=== PATIENT | male | born 1995 | race Caucasian/White ===

== ENCOUNTER 2017-05-08 22:23 | Inpatient (IN) | payer MEDICAID, OTHER ==
[~2017-05-08] VITALS: Ht 170.2 cm; Wt 74.8 kg
[2017-05-08] MEDS ORDERED: TRAZ150 PO (22:44)
[2017-05-08] MEDS ORDERED: HALO2 PO (22:44)
[2017-05-08] MEDS ORDERED: OLAN10TA3 PO (22:44)
[2017-05-08] MEDS ORDERED: BENZ1TAB10 PO (22:44)
[2017-05-08] MEDS ORDERED: LORA2TAB80 PO (22:44)
[2017-05-08] MEDS ORDERED: HALOPERIDOL 5 MG TABLET PO PRN (23:15)
[2017-05-08 23:24] LABS: APPEARANCE,URINE CLEAR (CLEAR); GLUCOSE, URINE (UA) NEGATIVE (NEGATIVE); KETONES,URINE 15 mg/dL (NEGATIVE); LEUKOCYTE ESTERASE ,URINE NEGATIVE (NEGATIVE); OCCULT BLOOD,URINE NEGATIVE (NEGATIVE); PH,URINE 6.5 (5.0-8.0); PROTEIN,URINE NEGATIVE (NEGATIVE)
[2017-05-08 23:25] LABS: BASOPHILS % (AUTO) 0.7 % (0.0-2.0); EOSINOPHILS % (AUTO) 0.7 % (1.0-6.0); HEMOGLOBIN 15.3 g/dL (13.5-17.5); LYMPHOCYTES # (AUTO) 2.5 K/uL (1.0-4.8); LYMPHOCYTES % (AUTO) 30.1 % (22.0-44.0); MEAN CORPUSCULAR HEMOGLOBIN 30.2 pg (26.0-34.0); MEAN CORPUSCULAR HGB CONC 33.9 G/dL (31.0-37.0); MEAN CORPUSCULAR VOLUME 89 fL (80-100); MONOCYTES # (AUTO) 1.2 K/uL (0.1-1.0); MONOCYTES % (AUTO) 14.9 % (2.0-9.0); NEUTROPHILS # (AUTO) 4.4 K/uL (1.8-7.7); NEUTROPHILS % (AUTO) 53.6 % (40.0-70.0); PLATELET COUNT (AUTO) 239 K/uL (150-450); RED BLOOD CELL COUNT(AUTO) 5.05 MIL/uL (4.50-5.90); RED CELL DISTRIBUTION WIDTH 12.8 % (11.5-14.5); WHITE BLOOD COUNT (AUTO) 8.2 K/uL (4.5-11.0)
[2017-05-08 23:28] LABS: ADD UA MICROSCOPIC NO
[2017-05-08 23:33] LABS: ANION GAP 11 mmol/L (8-16); CALCIUM, TOTAL 8.7 mg/dL (8.8-10.5); CARBON DIOXIDE 25 mmol/L (22-29); CHLORIDE 103 mmol/L (98-107); CREATININE 0.89 mg/dL (0.60-1.30); GLOMERULAR FILTR. RATE CALC > 60 mL/min (>60); POTASSIUM 3.7 mmol/L (3.5-5.1); SODIUM SERUM 139 mmol/L (136-145); UREA NITROGEN, BLOOD 13 mg/dL (7-18)
[2017-05-08 23:47] LABS: ALANINE AMINOTRANSFERASE 23 U/L (12-78); ALBUMIN 4.2 g/dL (3.4-5.0); ASPARTATE AMINOTRANSFERASE 22 U/L (15-37); CHOL/HDL RATIO 2.7 (4.2-7.3); THYROID STIMULATING HORMONE 1.16 uIU/mL (0.36-3.74); TOTAL PROTEIN, SERUM 7.4 g/dL (6.4-8.2)
[2017-05-08 23:48] LABS: SALICYLATE < 2.8 mg/dL (2.8-20.0)
[2017-05-08 23:57] LABS: ACETAMINOPHEN < 2 mcg/mL (10-30)
[2017-05-09 02:20] VITALS: BP 104/63
[2017-05-09 08:36] VITALS: BP 110/60
[2017-05-09] MEDS ORDERED: BENZ2TAB10 PO (13:45)
[2017-05-09] MEDS ORDERED: LORA0.5T2 PO (13:45)
[2017-05-09] MEDS ORDERED: HALO10 PO (13:45)
[2017-05-09 16:03] VITALS: BP 120/67
[2017-05-09] MEDS: OLANZapine 5 MG RAPDIS TABLET PO SCH (20:07)
[2017-05-10 01:22] VITALS: BP 111/65
[2017-05-10 08:31] VITALS: BP 121/71
[2017-05-10 16:20] VITALS: BP 126/80
[2017-05-10] MEDS: LORazepam 2 MG TABLET PO PRN (17:15)
[2017-05-10] MEDS: OLANZapine 5 MG RAPDIS TABLET PO SCH (20:46)
[2017-05-10] MEDS: ZOLPIDEM TARTRATE 10 MG TABLET PO PRN (20:46)
[2017-05-11 00:10] VITALS: BP 110/69
[2017-05-11 08:13] VITALS: BP 119/73
[2017-05-11 16:00] VITALS: BP 116/70
[2017-05-11] MEDS: LORazepam 2 MG TABLET PO PRN (16:39)
[2017-05-11] MEDS: OLANZapine 5 MG RAPDIS TABLET PO SCH (20:26)
[2017-05-11] MEDS: ZOLPIDEM TARTRATE 10 MG TABLET PO PRN (20:26)
[2017-05-12 01:05] VITALS: BP 126/72
[2017-05-12 08:47] VITALS: BP 128/70
[2017-05-12] MEDS ORDERED: OLAN5TAB40 PO (13:31)
[2017-05-12 16:23] VITALS: BP 117/82
== END 2017-05-12 16:05 | disposition home or self-care (01) | DRG 750 ==
LOC: EMS 22:23 → B2S 05-09 00:30
PROVIDERS: ADMIT Psychiatry & Neurology Psychiatry; ATTEND Psychiatry & Neurology Psychiatry
DX: F20.0 Paranoid schizophrenia (principal); F15.10 Other stimulant abuse, uncomplicated; F12.10 Cannabis abuse, uncomplicated
CPT/HCPCS: 84443; 93005; 99285; G0480; G0481

== ENCOUNTER 2021-01-03 23:57 | Emergency (ER) | payer MEDICAID, MEDICARE ==
[~2021-01-03] VITALS: Ht 170.2 cm; Wt 77.3 kg
[~2021-01-03 23:57] MED LIST: OLAN5TAB94 PO
[2021-01-04] MEDS ORDERED: LORazepam 1 MG TABLET PO ONE (01:15)
[2021-01-04 02:11] LABS: BASOPHILS % (AUTO) 0.6 % (0.0-2.0); EOSINOPHILS % (AUTO) 0.1 % (1.0-6.0); HEMATOCRIT 47.3 % (41-53); HEMOGLOBIN 16.2 g/dL (13.5-17.5); LYMPHOCYTES # (AUTO) 0.9 K/uL (1.0-4.8); LYMPHOCYTES % (AUTO) 11.5 % (22.0-44.0); MEAN CORPUSCULAR HEMOGLOBIN 30.4 pg (26.0-34.0); MEAN CORPUSCULAR HGB CONC 34.2 G/dL (31.0-37.0); MEAN CORPUSCULAR VOLUME 89 fL (80-100); MONOCYTES # (AUTO) 0.8 K/uL (0.1-1.0); MONOCYTES % (AUTO) 9.8 % (2.0-9.0); NEUTROPHILS # (AUTO) 6.3 K/uL (1.8-7.7); PLATELET COUNT (AUTO) 211 K/uL (150-450); RED BLOOD CELL COUNT(AUTO) 5.33 MIL/uL (4.50-5.90); RED CELL DISTRIBUTION WIDTH 12.6 % (11.5-14.5)
[2021-01-04 02:12] LABS: ANION GAP 7 mmol/L (8-16); CALCIUM, TOTAL 8.7 mg/dL (8.8-10.5); CARBON DIOXIDE 29 mmol/L (22-29); CHLORIDE 102 mmol/L (98-107); CREATININE 1.15 mg/dL (0.60-1.30); GLOMERULAR FILTR. RATE CALC > 60 mL/min (>60); GLUCOSE,RANDOM 77 mg/dL (70-110); POTASSIUM 4.1 mmol/L (3.5-5.1); SODIUM SERUM 138 mmol/L (136-145); UREA NITROGEN, BLOOD 8 mg/dL (7-18)
[2021-01-04 02:17] LABS: ALANINE AMINOTRANSFERASE 23 U/L (12-78); ALBUMIN 4.7 g/dL (3.4-5.0); ALKALINE PHOSPHATASE 73 U/L (46-116); ASPARTATE AMINOTRANSFERASE 19 U/L (15-37)
[2021-01-04 03:09] VITALS: BP 124/86
== END 2021-01-04 03:09 | disposition home or self-care (01) ==
LOC: EMS 23:58
DX: F41.9 Anxiety disorder, unspecified (principal); F20.9 Schizophrenia, unspecified
CPT/HCPCS: 36415; 70450; 80053; 85025; 99284; G0480

== ENCOUNTER 2021-04-12 17:25 | Emergency (ER) | payer MEDICARE ==
[~2021-04-12] VITALS: Ht 172.7 cm; Wt 72.7 kg
[~2021-04-12 17:25] MED LIST changes: +LEVE500T53 PO
[2021-04-12] MEDS ORDERED: LORazepam 2 MG TABLET PO ONE (18:30)
[2021-04-12] MEDS ORDERED: LevETIRAcetam 500 MG TABLET PO ONE (18:30)
[2021-04-12 18:42] LABS: BASOPHILS % (AUTO) 0.7 % (0.0-2.0); EOSINOPHILS % (AUTO) 0.1 % (1.0-6.0); HEMATOCRIT 48.9 % (41-53); HEMOGLOBIN 16.2 g/dL (13.5-17.5); LYMPHOCYTES # (AUTO) 1.2 K/uL (1.0-4.8); LYMPHOCYTES % (AUTO) 10.8 % (22.0-44.0); MEAN CORPUSCULAR HGB CONC 33.2 G/dL (31.0-37.0); MEAN CORPUSCULAR VOLUME 90 fL (80-100); MONOCYTES # (AUTO) 1.1 K/uL (0.1-1.0); MONOCYTES % (AUTO) 10.1 % (2.0-9.0); NEUTROPHILS # (AUTO) 8.4 K/uL (1.8-7.7); NEUTROPHILS % (AUTO) 78.3 % (40.0-70.0); PLATELET COUNT (AUTO) 250 K/uL (150-450); RED BLOOD CELL COUNT(AUTO) 5.41 MIL/uL (4.50-5.90); RED CELL DISTRIBUTION WIDTH 12.5 % (11.5-14.5)
[2021-04-12 18:52] LABS: ANION GAP 14 mmol/L (8-16); CALCIUM, TOTAL 9.2 mg/dL (8.8-10.5); CARBON DIOXIDE 22 mmol/L (22-29); CHLORIDE 102 mmol/L (98-107); CREATININE 1.17 mg/dL (0.60-1.30); GLOMERULAR FILTR. RATE CALC > 60 mL/min (>60); GLUCOSE,RANDOM 94 mg/dL (70-110); POTASSIUM 3.9 mmol/L (3.5-5.1); SODIUM SERUM 138 mmol/L (136-145); UREA NITROGEN, BLOOD 8 mg/dL (7-18)
[2021-04-12 18:59] LABS: ALANINE AMINOTRANSFERASE 23 U/L (12-78); ALBUMIN 4.6 g/dL (3.4-5.0); ALKALINE PHOSPHATASE 78 U/L (46-116); ASPARTATE AMINOTRANSFERASE 15 U/L (15-37); BILIRUBIN,TOTAL 0.5 mg/dL (0.1-1.0); TOTAL PROTEIN, SERUM 8.5 g/dL (6.4-8.2)
[2021-04-12 22:00] VITALS: BP 120/68
== END 2021-04-12 22:06 | disposition home or self-care (01) ==
LOC: EMS 17:27
DX: F25.9 Schizoaffective disorder, unspecified (principal); F41.9 Anxiety disorder, unspecified; R00.0 Tachycardia, unspecified; R56.9 Unspecified convulsions; F17.200 Nicotine dependence, unspecified, uncomplicated
CPT/HCPCS: 36415; 70450; 80053; 85025; 99284; G0480

== ENCOUNTER 2021-05-28 09:00 | Emergency (ER) | payer MEDICARE, MEDICAID ==
[~2021-05-28] VITALS: Ht 170.2 cm; Wt 72.7 kg
[~2021-05-28 09:00] MED LIST changes: +LEVE500T20 PO; -LEVE500T53 PO
[2021-05-28] MEDS ORDERED: CITA-144 PO (09:06)
[2021-05-28] MEDS ORDERED: OLAN5TAB52 PO (09:06)
[2021-05-28] MEDS ORDERED: LevETIRAcetam 1,000 MG in DEXTROSE 5%-WATER 100 ML IV ONE (09:15)
[2021-05-28 10:49] VITALS: BP 121/79
== END 2021-05-28 11:09 | disposition home or self-care (01) ==
LOC: EMS 09:00
DX: G40.909 Epilepsy, unspecified, not intractable, without status epilepticus (principal)
CPT/HCPCS: 96374; 99283; J0712; J7060

== ENCOUNTER 2021-06-17 18:10 | Emergency (ER) | payer MEDICARE, MEDICAID ==
[~2021-06-17] VITALS: Ht 170.2 cm; Wt 77.3 kg
[~2021-06-17 18:10] MED LIST changes: +CITA-144 PO; +OLAN5TAB52 PO; -OLAN5TAB94 PO
[2021-06-17] MEDS ORDERED: LORazepam 2 MG/ML VIAL IVP ONE (20:00)
[2021-06-17 20:52] VITALS: BP 136/84
== END 2021-06-17 21:15 | disposition home or self-care (01) ==
LOC: EMS 18:10
DX: G40.909 Epilepsy, unspecified, not intractable, without status epilepticus (principal); F20.9 Schizophrenia, unspecified; Z79.899 Other long term (current) drug therapy
CPT/HCPCS: 96374; 99283; J2060

== ENCOUNTER 2023-04-25 16:25 | Inpatient (IN) | payer MEDICARE, OTHER ==
[~2023-04-25] VITALS: Ht 177.8 cm; Wt 66.2 kg
[2023-04-25] MEDS ORDERED: LevETIRAcetam 1,000 MG in DEXTROSE 5%-WATER 100 ML IV ONE (16:45)
[2023-04-25 17:08] LABS: BASOPHILS % (AUTO) 0.7 % (0.0-2.0); EOSINOPHILS % (AUTO) 0 % (1.0-6.0); HEMATOCRIT 43.1 % (41-53); HEMOGLOBIN 14.7 g/dL (13.5-17.5); LYMPHOCYTES % (AUTO) 18.5 % (22.0-44.0); MEAN CORPUSCULAR HGB CONC 34.1 G/dL (31.0-37.0); MEAN CORPUSCULAR VOLUME 94 fL (80-100); MONOCYTES # (AUTO) 1.7 K/uL (0.1-1.0); MONOCYTES % (AUTO) 15.9 % (2.0-9.0); NEUTROPHILS % (AUTO) 64.9 % (40.0-70.0); PLATELET COUNT (AUTO) 247 K/uL (150-450); RED BLOOD CELL COUNT(AUTO) 4.61 MIL/uL (4.50-5.90); RED CELL DISTRIBUTION WIDTH 13.4 % (11.5-14.5); WHITE BLOOD COUNT (AUTO) 10.7 K/uL (4.5-11.0)
[2023-04-25 17:10] LABS: APPEARANCE,URINE CLEAR (CLEAR); COLOR,URINE YELLOW (YELLOW); GLUCOSE, URINE (UA) NEGATIVE (NEGATIVE); KETONES,URINE =>150 mg/dL (NEGATIVE); LEUKOCYTE ESTERASE ,URINE NEGATIVE (NEGATIVE); NITRATE,URINE NEGATIVE (NEGATIVE); OCCULT BLOOD,URINE NEGATIVE (NEGATIVE); PROTEIN,URINE 100-200,SEE CONFIRM mg/dL (NEGATIVE)
[2023-04-25 17:14] LABS: BILIRUBIN,URINE SMALL (NEGATIVE)
[2023-04-25] MEDS ORDERED: SODIUM CHLORIDE 0.9% 1,000 ML IV ONE (17:15)
[2023-04-25 17:26] LABS: SULFOSALICYLIC ACID,URINE Negative (Negative)
[2023-04-25 17:33] LABS: ANION GAP 26 mmol/L (8-16); CARBON DIOXIDE 15 mmol/L (22-29); CHLORIDE 100 mmol/L (98-107); CREATININE 1.04 mg/dL (0.60-1.30); GLOMERULAR FILTR. RATE CALC > 60 mL/min (>60); GLUCOSE,RANDOM 75 mg/dL (70-110); POTASSIUM 3.5 mmol/L (3.5-5.1); SODIUM SERUM 141 mmol/L (136-145); TROPONIN I-HIGH SENSITIVITY 15 ng/L (<76); UREA NITROGEN, BLOOD 18 mg/dL (7-18)
[2023-04-25 17:40] LABS: ALANINE AMINOTRANSFERASE 71 U/L (12-78); ALBUMIN 4.5 g/dL (3.4-5.0); ALKALINE PHOSPHATASE 103 U/L (46-116); ASPARTATE AMINOTRANSFERASE 26 U/L (15-37); BILIRUBIN,TOTAL 2.1 mg/dL (0.1-1.0); TOTAL PROTEIN, SERUM 8.1 g/dL (6.4-8.2)
[2023-04-25 18:14] LABS: LACTIC ACID 2.5 mmol/L (0.4-2.0)
[2023-04-25 19:30] LABS: PH,URINE DRUG SCREEN 6.5 (5.0-8.0)
[2023-04-25 19:37] LABS: ALCOHOL, URINE DRUG SCREEN NEGATIVE (NEGATIVE); AMPHET/METH SCREEN,URINE NEGATIVE (NEGATIVE); BARBITURATE SCREEN, URINE NEGATIVE (NEGATIVE); BENZODIAZEPINES SCREEN,URINE NEGATIVE (NEGATIVE); CANNABINOID SCREEN,URINE POSITIVE (NEGATIVE); COCAINE SCREEN,URINE NEGATIVE (NEGATIVE); METHADONE SCREEN, URINE NEGATIVE (NEGATIVE); OPIATE SCREEN,URINE NEGATIVE (NEGATIVE); PHENCYCLIDINE SCREEN,URINE NEGATIVE (NEGATIVE)
[2023-04-25 22:07] LABS: COVID AG,FIA SOURCE NASAL SWAB
[2023-04-25] MEDS ORDERED: ACETAMINOPHEN 325 MG TABLET PO PRN (22:30)
[2023-04-25] MEDS ORDERED: ONDANSETRON HCL 4 MG/2 ML VIAL IVP PRN (22:30)
[2023-04-25] MEDS ORDERED: HYDROCODONE/ACETAMINOPHEN 5-325 MG TABLET PO PRN (22:30)
[2023-04-25] MEDS ORDERED: MAGNESIUM HYDROXIDE SUSPENSION 30 ML UDCUP PO PRN (22:30)
[2023-04-25] MEDS ORDERED: MORPHINE SULFATE 2 MG/ML SYRINGE IVP PRN (22:30)
[2023-04-25] MEDS ORDERED: BISACODYL 10 MG RECTAL RECTAL SUPPOSITORY PR PRN (22:30)
[2023-04-25 22:32] LABS: SARS-COV2 (COVID) ANTIGEN,FIA Negative (Negative)
[2023-04-26] VITALS (7 sets, daily range): BP systolic 106–131; BP diastolic 64–85; PULSE 54–79; RESP 16–20; TEMP 97.6–98.4
[2023-04-26] MEDS: HEPARIN SODIUM,PORCINE 5,000 UNITS/ML VIAL SQ SCH ×3 (00:13→16:05)
[2023-04-26] MEDS: PANTOPRAZOLE SODIUM 40 MG DR TABLET PO SCH (08:41)
[2023-04-26] MEDS: LevETIRAcetam 250 MG TABLET PO SCH ×2 (08:41→21:33)
[2023-04-26] MEDS: DOCUSATE SODIUM 100 MG CAPSULE PO SCH ×2 (08:41→21:00)
[2023-04-26] MEDS: CITALOPRAM HYDROBROMIDE 20 MG TABLET PO SCH (08:41)
[2023-04-26] MEDS ORDERED: LevETIRAcetam 250 MG TABLET PO SCH (09:00)
[2023-04-26] MEDS ORDERED: CITALOPRAM HYDROBROMIDE 20 MG TABLET PO SCH (09:00)
[2023-04-26] MEDS: OLANZapine 5 MG TABLET PO SCH (21:45)
[2023-04-26] MEDS ORDERED: SODIUM CHLORIDE 0.9% 500 ML IV ONE (22:24)
[2023-04-26] MEDS: LevETIRAcetam 750 MG in DEXTROSE 5%-WATER 100 ML IV SCH (22:59)
[2023-04-27 00:05] VITALS: BP 119/75; PULSE 59; RESP 18; TEMP 98.4
[2023-04-27] MEDS: HEPARIN SODIUM,PORCINE 5,000 UNITS/ML VIAL SQ SCH ×4 (00:05→23:35)
[2023-04-27 04:36] VITALS: BP 130/76; PULSE 61; RESP 19; TEMP 98.9
[2023-04-27 07:36] VITALS: BP 129/83; PULSE 70; RESP 20; TEMP 98.7
[2023-04-27] MEDS: CITALOPRAM HYDROBROMIDE 20 MG TABLET PO SCH (08:04)
[2023-04-27] MEDS: DOCUSATE SODIUM 100 MG CAPSULE PO SCH ×2 (08:04→21:07)
[2023-04-27] MEDS: PANTOPRAZOLE SODIUM 40 MG DR TABLET PO SCH (08:06)
[2023-04-27] MEDS ORDERED: SODIUM CHLORIDE 0.9% 500 ML IV ONE (11:59)
[2023-04-27] MEDS: LevETIRAcetam 750 MG in DEXTROSE 5%-WATER 100 ML IV SCH ×2 (12:04→22:28)
[2023-04-27 13:00] VITALS: BP 129/82; PULSE 82; RESP 20; TEMP 99.8
[2023-04-27] MEDS: SODIUM CHLORIDE 0.9% 1,000 ML IV SCH (14:05)
[2023-04-27 16:25] VITALS: BP 139/85; PULSE 89; RESP 18; TEMP 99.4
[2023-04-27 20:47] VITALS: BP 131/93; PULSE 74; RESP 20; TEMP 98
[2023-04-27] MEDS: OLANZapine 5 MG TABLET PO SCH (21:08)
[2023-04-28 04:00] VITALS: BP 136/90; PULSE 92; RESP 18; TEMP 100.6
[2023-04-28] MEDS: ACETAMINOPHEN 650 MG RECTAL SUPPOSITORY PR PRN (05:48)
[2023-04-28 08:11] VITALS: BP 135/90; PULSE 93; RESP 20; TEMP 98.2
[2023-04-28] MEDS: SODIUM CHLORIDE 0.9% 1,000 ML IV SCH (10:19)
[2023-04-28] MEDS: HEPARIN SODIUM,PORCINE 5,000 UNITS/ML VIAL SQ SCH ×3 (10:19→23:28)
[2023-04-28] MEDS: CITALOPRAM HYDROBROMIDE 20 MG TABLET PO SCH (10:19)
[2023-04-28] MEDS: PANTOPRAZOLE SODIUM 40 MG DR TABLET PO SCH (10:19)
[2023-04-28] MEDS: DOCUSATE SODIUM 100 MG CAPSULE PO SCH ×2 (10:19→21:06)
[2023-04-28] MEDS: LevETIRAcetam 750 MG in DEXTROSE 5%-WATER 100 ML IV SCH ×2 (10:25→23:12)
[2023-04-28] MEDS ORDERED: LORazepam 2 MG/ML VIAL IVP PRN (10:45)
[2023-04-28 16:25] VITALS: BP 14/89; PULSE 76; RESP 20; TEMP 99
[2023-04-28 18:48] LABS: APPEARANCE,URINE CLEAR (CLEAR); COLOR,URINE YELLOW (YELLOW); GLUCOSE, URINE (UA) NEGATIVE (NEGATIVE); KETONES,URINE =>150 mg/dL (NEGATIVE); LEUKOCYTE ESTERASE ,URINE NEGATIVE (NEGATIVE); NITRATE,URINE NEGATIVE (NEGATIVE); OCCULT BLOOD,URINE NEGATIVE (NEGATIVE); PH,URINE 6.5 (5.0-8.0); PROTEIN,URINE 30-70 mg/dL (NEGATIVE); SPECIFIC GRAVITIY, URINE 1.036 (1.003-1.030)
[2023-04-28 18:54] LABS: BILIRUBIN,URINE SMALL (NEGATIVE)
[2023-04-28 18:56] LABS: BACTERIA,URINE Rare /HPF (None Seen); RBC,URINE 0-2 /HPF (0-2); SQUAMOUS EPITHELIAL CELL,UR Few /LPF (None Seen); WBC,URINE 0-2 /HPF (0-5)
[2023-04-28 20:18] VITALS: BP 130/92; PULSE 114; RESP 20; TEMP 98.3
[2023-04-28] MEDS ORDERED: LevETIRAcetam 100 MG/ML 5 ML SOLUTION UDCUP PO SCH (21:00)
[2023-04-28] MEDS: OLANZapine 5 MG TABLET PO SCH (21:06)
[2023-04-29 04:40] VITALS: BP 128/85; PULSE 77; RESP 20; TEMP 98.9
[2023-04-29] MEDS: ZOLPIDEM TARTRATE 5 MG TABLET PO PRN (04:45)
[2023-04-29] MEDS: SODIUM CHLORIDE 0.9% 1,000 ML IV SCH (05:42)
[2023-04-29 08:05] VITALS: BP 149/97; PULSE 115; RESP 19; TEMP 97.8
[2023-04-29] MEDS: DOCUSATE SODIUM 100 MG CAPSULE PO SCH ×2 (08:43→21:00)
[2023-04-29] MEDS: CITALOPRAM HYDROBROMIDE 20 MG TABLET PO SCH (08:43)
[2023-04-29] MEDS: PANTOPRAZOLE SODIUM 40 MG DR TABLET PO SCH (08:43)
[2023-04-29] MEDS: HEPARIN SODIUM,PORCINE 5,000 UNITS/ML VIAL SQ SCH ×3 (08:43→23:31)
[2023-04-29] MEDS: LevETIRAcetam 750 MG in DEXTROSE 5%-WATER 100 ML IV SCH ×2 (11:49→23:13)
[2023-04-29] MEDS ORDERED: LORazepam 2 MG/ML VIAL IM ONE ×2 (13:00→16:00)
[2023-04-29] MEDS: RisperiDONE 2 MG TABLET PO SCH ×2 (13:00→20:55)
[2023-04-29 20:12] VITALS: BP 134/87; PULSE 116; RESP 20; TEMP 98.4
[2023-04-29] MEDS: OLANZapine 5 MG TABLET PO SCH (20:55)
[2023-04-30] MEDS: SODIUM CHLORIDE 0.9% 1,000 ML IV SCH ×2 (02:09→21:59)
[2023-04-30 05:06] VITALS: BP 127/83; PULSE 110; RESP 20; TEMP 98.8
[2023-04-30 08:00] VITALS: BP 112/83; PULSE 119; RESP 20; TEMP 98.8
[2023-04-30] MEDS: RisperiDONE 2 MG TABLET PO SCH (09:06)
[2023-04-30] MEDS: DOCUSATE SODIUM 100 MG CAPSULE PO SCH ×2 (09:06→21:00)
[2023-04-30] MEDS: PANTOPRAZOLE SODIUM 40 MG DR TABLET PO SCH (09:06)
[2023-04-30] MEDS: HEPARIN SODIUM,PORCINE 5,000 UNITS/ML VIAL SQ SCH ×2 (09:07→15:38)
[2023-04-30] MEDS: CITALOPRAM HYDROBROMIDE 20 MG TABLET PO SCH (09:08)
[2023-04-30] MEDS: LevETIRAcetam 750 MG in DEXTROSE 5%-WATER 100 ML IV SCH ×2 (11:06→23:23)
[2023-04-30] MEDS: DEXTROSE 5%-0.45% SODIUM CHL 1,000 ML IV SCH (15:38)
[2023-04-30 19:35] VITALS: BP 128/89; PULSE 103; RESP 20; TEMP 97.9
[2023-05-01] MEDS: HEPARIN SODIUM,PORCINE 5,000 UNITS/ML VIAL SQ SCH ×4 (00:04→23:59)
[2023-05-01 03:40] VITALS: BP 107/68; PULSE 59; RESP 20; TEMP 100
[2023-05-01] MEDS: ACETAMINOPHEN 650 MG RECTAL SUPPOSITORY PR PRN ×2 (04:44→22:27)
[2023-05-01] MEDS: PANTOPRAZOLE SODIUM 40 MG DR TABLET PO SCH (08:03)
[2023-05-01] MEDS: CITALOPRAM HYDROBROMIDE 20 MG TABLET PO SCH (08:03)
[2023-05-01] MEDS: DOCUSATE SODIUM 100 MG CAPSULE PO SCH ×2 (08:04→21:00)
[2023-05-01 08:14] VITALS: BP 85/54; PULSE 83; RESP 18; TEMP 98.1
[2023-05-01 08:16] VITALS: BP 113/68; PULSE 88; RESP 18; TEMP 99.4
[2023-05-01] MEDS: LevETIRAcetam 250 MG TABLET PO SCH ×2 (13:03→21:00)
[2023-05-01] MEDS: DEXTROSE 5%-0.45% SODIUM CHL 1,000 ML IV SCH (13:04)
[2023-05-01 15:53] VITALS: BP 125/70; PULSE 79; RESP 18; TEMP 98.4
[2023-05-01 19:44] VITALS: BP 126/72; PULSE 88; RESP 18; TEMP 99.6
[2023-05-01] MEDS ORDERED: LevETIRAcetam 750 MG in DEXTROSE 5%-WATER 100 ML IV ONE (22:00)
[2023-05-02 05:41] VITALS: BP 130/70; PULSE 71; RESP 18; TEMP 97.7
[2023-05-02] MEDS: HEPARIN SODIUM,PORCINE 5,000 UNITS/ML VIAL SQ SCH ×3 (08:37→23:30)
[2023-05-02] MEDS: PANTOPRAZOLE SODIUM 40 MG DR TABLET PO SCH (09:00)
[2023-05-02] MEDS: LORazepam 2 MG TABLET PO SCH ×4 (09:00→21:00)
[2023-05-02] MEDS: DOCUSATE SODIUM 100 MG CAPSULE PO SCH ×2 (09:00→21:00)
[2023-05-02] MEDS: LevETIRAcetam 250 MG TABLET PO SCH ×2 (09:39→20:50)
[2023-05-02] MEDS: DEXTROSE 5%-0.45% SODIUM CHL 1,000 ML IV SCH (09:44)
[2023-05-02 15:45] VITALS: BP 126/90; PULSE 95; RESP 20; TEMP 99.6
[2023-05-02 19:40] VITALS: BP 126/83; PULSE 82; RESP 16; TEMP 98.2
[2023-05-03 04:10] VITALS: BP 122/75; PULSE 71; RESP 16; TEMP 98.4
[2023-05-03] MEDS: DEXTROSE 5%-0.45% SODIUM CHL 1,000 ML IV SCH (04:41)
[2023-05-03] MEDS: DOCUSATE SODIUM 100 MG CAPSULE PO SCH ×2 (07:52→20:31)
[2023-05-03] MEDS: HEPARIN SODIUM,PORCINE 5,000 UNITS/ML VIAL SQ SCH ×2 (07:53→15:41)
[2023-05-03] MEDS: LevETIRAcetam 250 MG TABLET PO SCH ×2 (07:53→20:32)
[2023-05-03] MEDS: PANTOPRAZOLE SODIUM 40 MG DR TABLET PO SCH (07:53)
[2023-05-03] MEDS: LORazepam 2 MG TABLET PO SCH ×3 (08:08→20:31)
[2023-05-03 08:19] VITALS: BP 127/88; PULSE 74; RESP 20; TEMP 98.7
[2023-05-03 17:42] VITALS: BP 112/69; PULSE 108; RESP 20; TEMP 97.5
[2023-05-03 19:22] VITALS: BP 112/72; PULSE 101; RESP 18; TEMP 98.9
[2023-05-04] MEDS: HEPARIN SODIUM,PORCINE 5,000 UNITS/ML VIAL SQ SCH ×5 (00:14→23:38)
[2023-05-04] MEDS: DEXTROSE 5%-0.45% SODIUM CHL 1,000 ML IV SCH ×2 (03:50→23:38)
[2023-05-04 08:10] VITALS: BP 132/93; PULSE 80; RESP 19; TEMP 98.7
[2023-05-04] MEDS: DOCUSATE SODIUM 100 MG CAPSULE PO SCH ×2 (09:04→20:03)
[2023-05-04] MEDS: LORazepam 2 MG TABLET PO SCH ×3 (09:05→20:03)
[2023-05-04] MEDS: PANTOPRAZOLE SODIUM 40 MG DR TABLET PO SCH (09:05)
[2023-05-04] MEDS: LevETIRAcetam 250 MG TABLET PO SCH ×2 (09:05→20:03)
[2023-05-04] MEDS ORDERED: LORA-1001 PO (11:02)
[2023-05-04] MEDS ORDERED: LEVE250T PO (11:02)
[2023-05-04 16:15] VITALS: BP 123/79; PULSE 98; RESP 18; TEMP 97.7
[2023-05-04 19:30] VITALS: BP 117/71; PULSE 111; RESP 18; TEMP 97.9
[2023-05-05 03:48] VITALS: BP 121/76; PULSE 76; RESP 19; TEMP 98.8
[2023-05-05 08:00] VITALS: BP 132/89; PULSE 97; RESP 20; TEMP 97.8
[2023-05-05] MEDS: HEPARIN SODIUM,PORCINE 5,000 UNITS/ML VIAL SQ SCH ×4 (08:00→23:56)
[2023-05-05] MEDS: PANTOPRAZOLE SODIUM 40 MG DR TABLET PO SCH (08:58)
[2023-05-05] MEDS: LevETIRAcetam 250 MG TABLET PO SCH ×2 (08:58→20:14)
[2023-05-05] MEDS: DOCUSATE SODIUM 100 MG CAPSULE PO SCH ×2 (08:58→20:14)
[2023-05-05] MEDS: LORazepam 2 MG TABLET PO SCH ×3 (08:58→20:14)
[2023-05-05] MEDS: DEXTROSE 5%-0.45% SODIUM CHL 1,000 ML IV SCH (17:47)
[2023-05-05] MEDS: ZOLPIDEM TARTRATE 5 MG TABLET PO PRN (20:14)
[2023-05-05 20:29] VITALS: BP 120/79; PULSE 90; RESP 18; TEMP 98
[2023-05-06 03:33] VITALS: BP 116/76; PULSE 99; RESP 18; TEMP 97.5
[2023-05-06 07:33] VITALS: BP 110/68; PULSE 85; RESP 20; TEMP 97.8
[2023-05-06] MEDS: HEPARIN SODIUM,PORCINE 5,000 UNITS/ML VIAL SQ SCH ×3 (08:00→16:00)
[2023-05-06] MEDS: PANTOPRAZOLE SODIUM 40 MG DR TABLET PO SCH (08:31)
[2023-05-06] MEDS: DOCUSATE SODIUM 100 MG CAPSULE PO SCH (08:32)
[2023-05-06] MEDS: DEXTROSE 5%-0.45% SODIUM CHL 1,000 ML IV SCH (08:33)
[2023-05-06] MEDS: LevETIRAcetam 250 MG TABLET PO SCH (08:34)
[2023-05-06 15:04] VITALS: BP 121/74; PULSE 88; RESP 18; TEMP 98.2
== END 2023-05-06 17:30 | disposition home health service (06) | DRG 101 ==
LOC: EMS 16:27 → 5S 22:22 → EMS 22:46 → 5S 04-27 03:29 → 6N 04-27 10:25
PROVIDERS: ADMIT Internal Medicine; ATTEND Internal Medicine
DX: G40.909 Epilepsy, unspecified, not intractable, without status epilepticus (principal); E44.0 Moderate protein-calorie malnutrition; F94.0 Selective mutism; Z20.822 Contact with and (suspected) exposure to COVID-19; F06.1 Catatonic disorder due to known physiological condition; F41.9 Anxiety disorder, unspecified; F25.9 Schizoaffective disorder, unspecified; T42.6X6A Underdosing of other antiepileptic and sedative-hypnotic drugs, initial encounter; Y92.89 Other specified places as the place of occurrence of the external cause; Z68.20 Body mass index [BMI] 20.0-20.9, adult; Z81.8 Family history of other mental and behavioral disorders; Z79.899 Other long term (current) drug therapy
CPT/HCPCS: 51702; 70450; 71045; 80053; 80307; 81001; 81002; 83605; 84484; 85025; 85730; 87040; 92526; 92610; 93005; 97116; 97162; 97167; 97530; 97535; 99291; G0480; J0712; J1644; J2060; J7030; J7040; J7060; 36415-L1; 36415-TC

== ENCOUNTER 2023-07-28 06:59 | Emergency (ER) | payer MEDICARE, OTHER ==
[~2023-07-28] VITALS: Ht 170.2 cm; Wt 63.6 kg
[~2023-07-28 06:59] MED LIST changes: -CITA-144 PO; +LEVE250T PO; -LEVE500T20 PO; -OLAN5TAB52 PO
[2023-07-28 07:09] VITALS: TEMP 98.5
[2023-07-28] MEDS ORDERED: LORA-999 PO (07:39)
[2023-07-28] MEDS ORDERED: LevETIRAcetam 500 MG TABLET PO ONE (07:45)
[2023-07-28 07:49] LABS: BASOPHILS % (AUTO) 0.5 % (0.0-2.0); EOSINOPHILS % (AUTO) 0.4 % (1.0-6.0); HEMATOCRIT 47.9 % (41-53); HEMOGLOBIN 16.6 g/dL (13.5-17.5); LYMPHOCYTES # (AUTO) 1.4 K/uL (1.0-4.8); LYMPHOCYTES % (AUTO) 15.4 % (22.0-44.0); MEAN CORPUSCULAR HEMOGLOBIN 32.4 pg (26.0-34.0); MEAN CORPUSCULAR HGB CONC 34.7 G/dL (31.0-37.0); MEAN CORPUSCULAR VOLUME 94 fL (80-100); MONOCYTES # (AUTO) 1.1 K/uL (0.1-1.0); MONOCYTES % (AUTO) 11.8 % (2.0-9.0); NEUTROPHILS # (AUTO) 6.7 K/uL (1.8-7.7); NEUTROPHILS % (AUTO) 71.9 % (40.0-70.0); PLATELET COUNT (AUTO) 232 K/uL (150-450); RED BLOOD CELL COUNT(AUTO) 5.12 MIL/uL (4.50-5.90); RED CELL DISTRIBUTION WIDTH 13.6 % (11.5-14.5); WHITE BLOOD COUNT (AUTO) 9.3 K/uL (4.5-11.0)
[2023-07-28 08:00] LABS: ANION GAP 13 mmol/L (8-16); CALCIUM, TOTAL 9.1 mg/dL (8.8-10.5); CARBON DIOXIDE 23 mmol/L (22-29); CHLORIDE 102 mmol/L (98-107); CREATININE 0.88 mg/dL (0.60-1.30); GLOMERULAR FILTR. RATE CALC > 60 mL/min (>60); GLUCOSE,RANDOM 109 mg/dL (70-110); POTASSIUM 3.6 mmol/L (3.5-5.1); SODIUM SERUM 138 mmol/L (136-145); UREA NITROGEN, BLOOD 12 mg/dL (7-18)
[2023-07-28 08:06] LABS: ALANINE AMINOTRANSFERASE 14 U/L (12-78); ALBUMIN 4.8 g/dL (3.4-5.0); ALKALINE PHOSPHATASE 87 U/L (46-116); ASPARTATE AMINOTRANSFERASE 15 U/L (15-37); BILIRUBIN,TOTAL 0.4 mg/dL (0.1-1.0); TOTAL PROTEIN, SERUM 8.4 g/dL (6.4-8.2)
[2023-07-28] MEDS ORDERED: LORazepam 1 MG TABLET PO ONE (08:45)
[2023-07-28 08:47] VITALS: BP 142/93; PULSE 86; RESP 16
== END 2023-07-28 10:01 | disposition home or self-care (01) ==
LOC: EMS 07:00
DX: F41.9 Anxiety disorder, unspecified (principal); R56.9 Unspecified convulsions; F20.9 Schizophrenia, unspecified
CPT/HCPCS: 80053; 85025; 99283

== ENCOUNTER 2023-08-21 10:07 | Emergency (ER) | payer MEDICARE, OTHER ==
[~2023-08-21] VITALS: Ht 170.2 cm; Wt 68.2 kg
[~2023-08-21 10:07] MED LIST changes: +LORA-999 PO
[2023-08-21 10:40] VITALS: TEMP 97.7
[2023-08-21 15:28] LABS: BASOPHILS % (AUTO) 0.2 % (0.0-2.0); EOSINOPHILS % (AUTO) 0.1 % (1.0-6.0); HEMATOCRIT 52.4 % (41-53); HEMOGLOBIN 17.8 g/dL (13.5-17.5); LYMPHOCYTES # (AUTO) 1.3 K/uL (1.0-4.8); LYMPHOCYTES % (AUTO) 14.4 % (22.0-44.0); MEAN CORPUSCULAR VOLUME 94 fL (80-100); MONOCYTES # (AUTO) 0.5 K/uL (0.1-1.0); MONOCYTES % (AUTO) 5.1 % (2.0-9.0); NEUTROPHILS # (AUTO) 7.4 K/uL (1.8-7.7); NEUTROPHILS % (AUTO) 80.2 % (40.0-70.0); PLATELET COUNT (AUTO) 225 K/uL (150-450); RED BLOOD CELL COUNT(AUTO) 5.58 MIL/uL (4.50-5.90); RED CELL DISTRIBUTION WIDTH 13.3 % (11.5-14.5); WHITE BLOOD COUNT (AUTO) 9.2 K/uL (4.5-11.0)
[2023-08-21 15:34] LABS: ANION GAP 14 mmol/L (8-16); CALCIUM, TOTAL 8.9 mg/dL (8.8-10.5); CARBON DIOXIDE 26 mmol/L (22-29); CHLORIDE 99 mmol/L (98-107); CREATININE 0.73 mg/dL (0.60-1.30); GLOMERULAR FILTR. RATE CALC > 60 mL/min (>60); GLUCOSE,RANDOM 94 mg/dL (70-110); POTASSIUM 3.9 mmol/L (3.5-5.1); SODIUM SERUM 139 mmol/L (136-145); UREA NITROGEN, BLOOD 10 mg/dL (7-18)
[2023-08-21 15:44] LABS: ALCOHOL, BLOOD (SERUM) < 3 mg/dL (0-10)
[2023-08-21 15:47] LABS: ALANINE AMINOTRANSFERASE 16 U/L (12-78); ALBUMIN 4.9 g/dL (3.4-5.0); ALKALINE PHOSPHATASE 83 U/L (46-116); ASPARTATE AMINOTRANSFERASE 17 U/L (15-37); BILIRUBIN,TOTAL 0.4 mg/dL (0.1-1.0); THYROID STIMULATING HORMONE 1.72 uIU/mL (0.36-3.74); TOTAL PROTEIN, SERUM 8.4 g/dL (6.4-8.2)
[2023-08-21 17:22] LABS: ALCOHOL, URINE DRUG SCREEN NEGATIVE (NEGATIVE); AMPHET/METH SCREEN,URINE NEGATIVE (NEGATIVE); BARBITURATE SCREEN, URINE NEGATIVE (NEGATIVE); BENZODIAZEPINES SCREEN,URINE POSITIVE (NEGATIVE); CANNABINOID SCREEN,URINE NEGATIVE (NEGATIVE); COCAINE SCREEN,URINE NEGATIVE (NEGATIVE); METHADONE SCREEN, URINE NEGATIVE (NEGATIVE); OPIATE SCREEN,URINE NEGATIVE (NEGATIVE); PHENCYCLIDINE SCREEN,URINE NEGATIVE (NEGATIVE)
[2023-08-21] MEDS ORDERED: LORazepam 1 MG TABLET PO ONE (17:45)
[2023-08-21 17:56] VITALS: BP 127/81; PULSE 71; RESP 16
== END 2023-08-21 17:57 | disposition home or self-care (01) ==
LOC: EMS 10:18
DX: F41.9 Anxiety disorder, unspecified (principal); F25.9 Schizoaffective disorder, unspecified
CPT/HCPCS: 80053; 84443; 85025; 36415; 99283; 80307 ×2; G0480